=== PATIENT | male | born 1950 | race Caucasian/White ===

== ENCOUNTER → 2017-07-31 | Outpatient (CLI) | payer BC ==
--- NOTE | 2017-07-31 14:44 | US ---
HISTORY: Status post heart catheterization, pain and bruising in right groin, possible pseudoaneurys m Study: Duplex Doppler ultrasound of the right lower extremity Comparison: None Technique: Multiple grayscale and color flow images of the right lower extremity, with focus upon the right ingu inal region at femoral puncture site, were obtained. Findings: Imaging of the right inguinal region near the patient's right femoral artery puncture site demonstrat es normal Doppler flow within the right common femoral artery. Within the right inguinal region near the right common femoral artery, there is a 2.0 cm x 1.3 cm x 2.0 cm hypoechoic ovoid structure. This structure does not demonstrate color flow and is most consistent with a hematoma. No pseudoaneurysm is identified. IMPRESSION: 1. Right inguinal hematoma as described above. Reported By:
== END ==
LOC: RAD 13:03
PROVIDERS: ATTEND Internal Medicine Cardiovascular Disease
DX: I97.89 Other postprocedural complications and disorders of the circulatory system, not elsewhere classified (principal)
CPT/HCPCS: 76882

== ENCOUNTER 2017-08-05 08:58 | Emergency (ER) | payer BC ==
[2017-08-05 09:06] VITALS: BP 145/81; BMI 31.3
--- NOTE | 2017-08-05 09:43 | DR.GENAD ---
HPI - PCP Primary Care Physician: jorge - Complaint/Symptoms Chief Complaint:: pt had a heart cath done last week in [place], woke up this morning at 0430 and the site was bleeding a dressing was applied by family. Self Treatment fo Chief Complaint: In ER here 07/31 for same c/o, had US done which showed hematoma 2x1.3x2cm at cath site. Pt concerned that site again bled a little early this morning. - Nurses notes reviewed Nurses Notes Review: Yes - Source History Provided: Patient - Mode of Arrival Mode of Arrival: Ambulatory - Timing Onset of Chief Complaint: 08/05/17 Came on: [facility] - Duration Duration: Intermittent (stopped now, dsg applied by family) Duration: Minutes - Location Location: at cath site - Severity Severity: Mild PMH - PMH Past Medical History: Yes Past Medical History: Coronary Artery Disease, Hypertension, [place] Past Surgical History: Yes Surgical History: Angioplasty/Stents, Appendectomy Past Surgical History Comment: hernia. Recent cardiac cath via rt femoral artery - Family History History of Family Medical Conditions: Yes Family Medical History: Hypertension - Social History Does patient currently use any type of tobacco product: No Have you used tobacco products in the last 12 months: No Type of Tobacco Use: None Does any household member use tobacco: No Alcohol Use: None Do you use any recreational Drugs:: No Lives With: Family Lives Where: Home - infectious screening In the last 2 months have you had wt loss of >10#?: NO Have you had fever, night sweats or hemotysis?: No Have you traveled outside the country in the last 6 months?: No Isolation: Standard ROS - Review of Systems Constitutional: No Symptoms Reported, See HPI Eyes: No Symptoms Reported ENTM: No Symptoms Reported Respiratoy: No Symptoms Reported Cardiovascular: No Symptoms Reported Gastrointestinal/Abdominal: No Symptoms Reported Genitourinary: No Symptoms Reported Neurological: No Symptoms Reported Musculoskeletal: No Symptoms Reported, See HPI Integumentary: No Symptoms Reported, See HPI Hematologic/Lymphatic: See HPI All Other Systems: Reviewed and Negative PE - Vital Signs Vitals: Temperature 97.8 F Pulse Rate 71 Respiratory Rate 16 Blood Pressure 145/81 O2 Sat by Pulse Oximetry 99 - General Limitations: No Limitations General Appearance: Alert, In No Apparent Distress - Head Head Exam: Normal Inspection - Eyes Eye exam: Normal Appearance - ENT ENT Exam: Normal Exam - Neck Neck Exam: Normal Inspection, Full ROM, Trachea Midline - Chest Chest Inspection: Normal Inspection, Symmetric Chest Wall Rise - Respiratory Respiratory Exam: Normal Lung Sounds Bilat Respiratory Exam: Bilateral Clear to Auscultation - Cardiovascular Cardiovascular Exam: Regular Rate, Normal Rhythm - Abdominal Exam Abdominal Exam: Normal Inspection, Normal Bowel Sounds, Soft. negative: Tenderness, Guarding, Rebound, Rigidity - Extremities Extremities Exam: Normal Inspection (no active bleeding at cah site, no evidence of hematoma or swelling or cellulitis), Full ROM, Normal Capillary Refill. negative: Joint Swelling - Neurologic Neurological Exam: Alert, Oriented X3 - Psychiatric Psychiatric Exam: Normal Affect, Normal Mood - Skin Skin Exam: Warm, Dry - Other Exam Other Exam: cath site c/d/i ROR - XRAY XRAY Findings: US repeated, no evidence of pseudoaneurysm - Diagnosis Discharge Problem: Hematoma Narrative Support Text: pt reassured with normal US - Discharge Plan Disposition: 01 HOME, SELF-CARE Condition: Good - Follow ups/Referrals Follow ups/Referrals: [facility] [Primary Care Provider] - 3 days - Instructions Instructions: Hematoma
--- NOTE | 2017-08-05 10:24 | US ---
HISTORY: Bleeding, status post heart catheterization with clinical concern for pseudoaneurysm Study: Extremity ultrasound Comparison: 07/31/2017 Findings: Targeted scans were performed in the right groin. There is no evidence of pseudoaneurysm. There is a hypoechoic nonvascular collection suggestive of a hematoma measuring 1.1 x 1.9 x 1.8 cm. IMPRESSION: 1. Hematoma in the right groin measuring 1.1 x 1.9 x 1.8 cm. 2. No evidence of pseudoaneurysm. Reported By:
== END 2017-08-05 10:37 | disposition home or self-care (01) ==
LOC: ER 09:09
DX: S20.20XA Contusion of thorax, unspecified, initial encounter (principal); Y33.XXXA Other specified events, undetermined intent, initial encounter
CPT/HCPCS: 76882; 99282

== ENCOUNTER 2021-02-05 13:42 | Observation (INO) ==
[2021-02-05 13:59] VITALS: BMI 31.6
--- NOTE | 2021-02-05 14:39 | DR.GIBLEED ---
HPI Time Seen Time Seen by Provider: 02/05/21 14:23 Primary Care Physician Primary Care Physician: [facility] HPI Comment HPI Comment: PATIENT COMPLAINS OF LEFT LOWER ABDOMINAL PAIN CONSTANT SINCE LAST NIGHT, LOW GRADE FEVER, BLOODY STOOL THIS AM. DENIES NAUSEA EMESIS OR URINARY SYMPTOMS. TAKES BRILLANTA, HAS HAD CORONARY STENTS X 10. Complaints Chief Complaint Doctors Comments: LEFT LOWER ABDOMINAL PAIN, BLOOD IN STOOL Chief Complaint:: PT HAD SUDDEN ONSET OF LLQ PAIN DESCRIBED CONSTANT SORENESS THAT IS WORSENED WITH MOVENMENT THAT STARTED YESTERDAY. LAST NIGHT HE HAD TEMP 100. THIS MORNING HE NOTICED BRIGHT RED BLOOD IN STOOL. COVID-19 Coronavirus symptoms experienced: Fever Source History Provided: Patient Mode of Arrival Mode of Arrival: Ambulatory Timing Onset of Chief Complaint: 02/05/21 Duration Bleeding: Since Onset How lon Duration: Days Quality Stools: Bright Red Blood History Of: None Associated Signs and Symptoms Associated Signs and Symptoms: Abdominal Pain PMH PMH Past Medical History: Yes Past Medical History: Coronary Artery Disease, Dyslipidemia, Hypertension and [place] Past Surgical History: Yes Surgical History: Angioplasty/Stents and Appendectomy Past Surgical History Comment: CARDIAC STENT X 13, HERNIA REPAIR Family History History of Family Medical Conditions: Yes Family Medical History: Diabetes Mellitus, Cancer, [place], Coronary Artery Disease and Hypertension Social History Does patient currently use any type of tobacco product: No Have you used tobacco products in the last 12 months: No Type of Tobacco Use: None Does any household member use tobacco: No Alcohol Use: None Do you use any recreational Drugs:: No Lives With: Family Lives Where: Home Infectious screening In the last 2 months have you had wt loss of >10#?: NO Have you had fever, night sweats or hemotysis?: No Have you traveled outside the country in the last 6 months?: No Isolation: Standard ROS Review of Systems Constitutional: Fever Eyes: No Symptoms Reported ENTM: No Symptoms Reported Respiratoy: No Symptoms Reported Cardiovascular: No Symptoms Reported Gastrointestinal/Abdominal: See HPI, Abdominal Pain and Other (BRIGHT RED BLOOD IN STOOL) Genitourinary: No Symptoms Reported Neurological: No Symptoms Reported Musculoskeletal: No Symptoms Reported Integumentary: No Symptoms Reported Hematologic/Lymphatic: No Symptoms Reported Endocrine: No Symptoms Reported Psychiatric: No Symptoms Reported All Other Systems: Reviewed and Negative PE Vital Signs Vitals: Temperature 97.7 F Pulse Rate 68 Respiratory Rate 20 Blood Pressure 115/66 O2 Sat by Pulse Oximetry 98 General General Appearance: Alert and In No Apparent Distress Head Head Exam: Normal Inspection and Atraumatic Eyes Eye exam: Normal Appearance, PERRL and EOMI ENT ENT Exam: Normal Exam and Normal Oropharynx Neck Neck Exam: Normal Inspection and Full ROM Chest Chest Inspection: Normal Inspection and Symmetric Chest Wall Rise Respiratory Respiratory Exam: Normal Lung Sounds Bilat and Accessory Muscle Use Cardiovascular Cardiovascular Exam: Regular Rate and Normal Rhythm Abdominal Exam Abdominal Exam: Normal Inspection, Normal Bowel Sounds and Tenderness (MODERATE LEFT LOWER QUAD TENDERNESS) Abdominal Tenderness: LLQ Extremities Extremities Exam: Normal Inspection and Full ROM Back Back Exam: Normal Inspection and Full ROM Neurologic Neurological Exam: Alert, Oriented X3 and CN II-XII Intact Psychiatric Psychiatric Exam: Normal Affect, Normal Mood and Depressed Skin Skin Exam: Warm and Dry DIFFERENTIAL DIAGNOSIS Differential Diagnosis Differential Diagnosis: Diverticulosis and Inflammatory BD Differential Diagnosis Comment: ACUTE COLITIS COURSE Treatment Treatment: IV NORMAL SALINE 500ML/HR, AFTER 2 SETS OF BLOOD CULTURES, LEVAQUIN 750MG IVPB, REFUSED ANALGESICS.PATIENT HAD AN EPISODE OF NEAR SYNCOPE WHILE AMBULATION TO BATH ROOM Reevaluation 1st: Unchanged Consultation Call Returned: 16:30 Consultation Comments: DISCUSSED FINDINGS WITH DR PÉREZ FOR INPATIENT ADMISSION R[facility] Labs Reviewed Laboratory Results Reviewed?: Yes Result Diagrams: 02/05/21 15:15 02/05/21 15:15 Laboratory: 02/05/21 15:00 Stool - Final WBC 12.0 X10^3/uL (3.6-10.0) H 02/05/21 15:15 RBC 4.90 X10^6/uL (4.7-6.0) 02/05/21 15:15 Hgb 14.8 g/dL (13.5-18.0) 02/05/21 15:15 Hct 43.1 % (42.0-54.0) 02/05/21 15:15 MCV 88.1 fL (80.0-100.0) 02/05/21 15:15 MCH 30.2 pg (27.0-34.0) 02/05/21 15:15 MCHC 34.3 g/dL (33.0-35.0) 02/05/21 15:15 RDW 13.8 % (11.6-16.5) 02/05/21 15:15 Plt Count 192 X10^3/uL (150.0-450.0) 02/05/21 15:15 MPV 7.5 fL (7.4-11.0) 02/05/21 15:15 Neut % (Auto) 75.3 % (42.0-75.0) H 02/05/21 15:15 Lymph % (Auto) 13.7 % (21.0-51.0) L 02/05/21 15:15 [place] % (Auto) 9.4 % (0.0-13.0) 02/05/21 15:15 Eos % (Auto) 1.3 % (0.9-2.9) 02/05/21 15:15 Baso % (Auto) 0.3 % (0.2-1.0) 02/05/21 15:15 Neut # (Auto) 9.0 x10^3/uL (2.2-4.8) H 02/05/21 15:15 Lymph # (Auto) 1.6 X10^3/uL (1.3-2.9) 02/05/21 15:15 [place] # (Auto) 1.1 x10^3/uL (0.3-0.8) H 02/05/21 15:15 Eos # (Auto) 0.2 x10^3/uL (0.0-0.2) 02/05/21 15:15 Baso # (Auto) 0.0 X10^3/uL (0.0-0.1) 02/05/21 15:15 Absolute Nucleated RBC 0.0 /100WBC 02/05/21 15:15 PT 13.3 SECONDS (11.8-14.3) 02/05/21 15:15 INR Target Range - 02/05/21 15:15 INR 1.06 (0.8-1.3) 02/05/21 15:15 Sodium 138 mmol/L (136-145) 02/05/21 15:15 Corrected Sodium 139 mmol/L (136-145) 02/05/21 15:15 Potassium 4.2 mmol/L (3.5-5.1) 02/05/21 15:15 Chloride 103 mmol/L (98-107) 02/05/21 15:15 Carbon Dioxide 25.3 mmol/L (21-32) 02/05/21 15:15 BUN 18 mg/dL (7-18) 02/05/21 15:15 Creatinine 1.17 mg/dL (0.70-1.30) 02/05/21 15:15 Est GFR (MDRD) Af Amer > 60 (>60) 02/05/21 15:15 Est GFR (MDRD) Non-Af > 60 (>60) 02/05/21 15:15 Glucose 137 mg/dL (65-99) H 02/05/21 15:15 Calcium 8.7 mg/dL (8.5-10.1) 02/05/21 15:15 Troponin I 0.13 ng/mL (0-1.5) 02/05/21 15:15 Specimen Type Random urine 02/05/21 13:10 Urine Color Pale yellow (YELLOW) 02/05/21 13:10 Urine Appearance Clear (CLEAR) 02/05/21 13:10 Urine pH 6.5 (5.0 - 8.0) 02/05/21 13:10 Ur Specific [place] 1.015 (1.000-1.030) 02/05/21 13:10 Urine Protein 1+ (NEGATIVE) 02/05/21 13:10 Urine Glucose (UA) Negative (NEGATIVE) 02/05/21 13:10 Urine Ketones 2+ (NEGATIVE) 02/05/21 13:10 Urine Occult Blood Negative (NEGATIVE) 02/05/21 13:10 Urine Nitrite Negative (NEGATIVE) 02/05/21 13:10 Urine Bilirubin Negative (NEGATIVE) 02/05/21 13:10 Urine Urobilinogen Normal (NORMAL) 02/05/21 13:10 Ur Leukocyte Esterase Negative (NEGATIVE) 02/05/21 13:10 Urine RBC None seen /HPF (0-3) 02/05/21 13:10 Urine WBC None seen /HPF (0-5) 02/05/21 13:10 Ur Squamous Epith Cells Rare /HPF (NEGATIVE) 02/05/21 13:10 Urine Bacteria Negative /HPF (NEGATIVE) 02/05/21 13:10 Ur Culture Indicated? No/not indicated 02/05/21 13:10 Stool Description 75g red bloody clots 02/05/21 15:00 Stl Occult Blood (IFOB) Positive (NEGATIVE) A 02/05/21 15:00 Stool for White Cells Positive (NEGATIVE) A 02/05/21 15:00 Stool H. pylori Ag Negative (NEGATIVE) 02/05/21 15:00 SARS-CoV-2 (PCR) Negative (NEGATIVE) 02/05/21 13:10 Influenza Type A (PCR) Negative (NEGATIVE) 02/05/21 13:10 Influenza Type B (PCR) Negative (NEGATIVE) 02/05/21 13:10 RSV (PCR) Negative (NEGATIVE) 02/05/21 13:10 Blood Type O POSITIVE 02/05/21 15:15 Antibody Screen Negative 02/05/21 15:15 XRAY XRAY Interpreted by: Radiologist (ABDOMEN PELVIC CT C/W, CALCIFIED INTRALUMINAL GALLSTONE IN THE GALLBLADDER FUNDUS, 7.8CM LEFT LOWER POLE RENAL CYST, MARKED COLONIC THICKENING AND PERICOLONIC STEAKY INFLAMMATORY CHANGE DESCENDING COLON) EKG Rate: 68 [place]: Normal ST: Nonsp Opioid Opioid Risk Tool Total: 0 Total Score Risk Category: Low Risk Copyright: Geoff GENTILE predicting aberrant behaviors Diagnosis Discharge Problem: Acute diverticulitis
[2021-02-05] MEDS ORDERED: NS 1000 ML 1,000 ML IV STA (15:09)
[2021-02-05] MEDS ORDERED: NS 1000 ML 1,000 ML ONE ×2 (15:10→19:12)
[2021-02-05] MEDS ORDERED: ZOFRAN INJ 4 MG VIAL ONE (15:17)
[2021-02-05] MEDS ORDERED: ZOFRAN INJ 4 MG VIAL IVP ONE (15:24)
[2021-02-05 15:38] LABS: BASOPHILS % (AUTO) 0.3 % (0.2-1.0); EOSINOPHILS # (AUTO) 0.2 x10^3/uL (0.0-0.2); EOSINOPHILS % (AUTO) 1.3 % (0.9-2.9); HEMATOCRIT 43.1 % (42.0-54.0); HEMOGLOBIN 14.8 g/dL (13.5-18.0); LYMPHOCYTES # (AUTO) 1.6 X10^3/uL (1.3-2.9); LYMPHOCYTES % (AUTO) 13.7 % (21.0-51.0); MEAN CORPUSCULAR HEMOGLOBIN 30.2 pg (27.0-34.0); MEAN CORPUSCULAR HGB CONC 34.3 g/dL (33.0-35.0); MEAN CORPUSCULAR VOLUME 88.1 fL (80.0-100.0); MEAN PLATELET VOLUME 7.5 fL (7.4-11.0); MONOCYTES # (AUTO) 1.1 x10^3/uL (0.3-0.8); MONOCYTES % (AUTO) 9.4 % (0.0-13.0); NEUTROPHILS % (AUTO) 75.3 % (42.0-75.0); PLATELET COUNT 192 X10^3/uL (150.0-450.0); RED CELL DISTRIBUTION WIDTH 13.8 % (11.6-16.5)
[2021-02-05 16:01] LABS: TROPONIN I 0.13 ng/mL (0-1.5)
[2021-02-05 16:05] LABS: COR NA(FOR HYPERGLY) 139 mmol/L (136-145)
[2021-02-05 16:13] LABS: CALCIUM 8.7 mg/dL (8.5-10.1); CARBON DIOXIDE 25.3 mmol/L (21-32); CREATININE 1.17 mg/dL (0.70-1.30); eGFR NON BLACK RACES > 60 (>60)
[2021-02-05 16:14] LABS: CHLORIDE 103 mmol/L (98-107); SODIUM 138 mmol/L (136-145)
[2021-02-05 16:21] LABS: BLOOD UREA NITROGEN 18 mg/dL (7-18)
[2021-02-05] MEDS ORDERED: NS 100 ML IV 100 ML ONE (16:21)
--- NOTE | 2021-02-05 17:30 | CT ---
EXAM: CT ABDOMEN AND PELVIS WITH INTRAVENOUS CONTRASTHISTORY: Left lower quadrant abdominal pain.TECHNIQUE: Spiral axial CT images are obtained through the abdomen and pelvis without the administration of oral contrast and with the administration of intravenous contrast. Additional coronal and sagittal reformatted images are reconstructed.DOSIMETRY: Total DLP 920.5 mGycm; CTDI 49.6 mGyCOMPARISON: None available.FINDINGS:GASTROINTESTINAL TRACT: There is evidence for colonic diverticulosis, with acute descending colon diverticulitis, marked by colonic wall thickening and pericolonic streaky inflammatory change. No drainable fluid collection, free air, or abscess formation seen. No evidence for bowel herniation, bowel obstruction, or colitis. Small hiatal hernia with mild thickening of the visualized distal esophagus which may represent postinflammatory change or reflux esophagitis in the appropriate clinical setting.GENITOURINARY SYSTEM: There is a large, approximately 7.8 cm, left lower pole renal cyst. The kidneys are otherwise unremarkable. There is no ureteral calculus or stigmata of obstructive uropathy. The urinary bladder, seminal vesicles, prostate gland appear grossly unremarkable for a non-dedicated exam.CT ABDOMEN: There is suggestion of a phrygian cap with a calcified intraluminal gallstone in the gallbladder fundus. Severe aortoiliac atherosclerotic disease, without aneurysm formation or dissection. The liver, spleen, pancreas, adrenal glands, and inferior vena cava are within normal limits for a CT scan. There is no intra-abdominal or retroperitoneal lymphadenopathy, free fluid, or free air seen. No abdominal herniation is noted.CT PELVIS: The visualized bony structures are within normal limits. No pelvic sidewall or inguinal lymphadenopathy is seen. No inguinal herniation is noted. No free fluid or free air is seen.LUNG BASES: There is an approximately 6.9 mm subpleural nodule in the peripheral left lung base. For low risk patient, recommend follow-up CT in 12 months, and if stable no further follow-up. For high-risk patient, recommend follow-up CT in no more than 6-12 months, and if stable, consider follow-up at 18-24 months. The lung bases are otherwise clear. There is severe coronary atherosclerosis.IMPRESSION:1. Acute descending colon diverticulitis.2. No free air, free fluid, or abscess formation seen.3. Small hiatal hernia with mild thickening of the visualized distal esophagus which may represent postinflammatory change or reflux esophagitis in the appropriate clinical setting.4. No evidence for pyelonephritis, renal stone disease or obstructive uropathy.5. No free fluid, free air, mass lesions, or lymphadenopathy seen.6. Suggestion of a phrygian cap with a calcified intraluminal gallstone in the gallbladder fundus. Consider follow-up evaluation with ultrasound as clinically warranted.7. Approximately 6.9 mm subpleural nodule in the peripheral left lung base. For low risk patient, recommend follow-up CT in 12 months, and if stable no further follow-up. For high-risk patient, recommend follow-up CT in no more than 6-12 months, and if stable, consider follow-up at 18-24 months.Electronically signed by: David Torre (Feb 05, 2021 17:28:41)
[2021-02-05 18:25] LABS: PH,URINE 6.5 (5.0 - 8.0); PROTEIN,URINE 1+ (NEGATIVE)
[2021-02-05 18:26] LABS: BILIRUBIN,URINE NEGATIVE (NEGATIVE); BLOOD/HEMOGLOBIN,URINE NEGATIVE (NEGATIVE); GLUCOSE, URINE NEGATIVE (NEGATIVE); KETONES,URINE 2+ (NEGATIVE); LEUKOCYTE ESTERASE ,URINE NEGATIVE (NEGATIVE); NITRITES,URINE NEGATIVE (NEGATIVE); UROBILINOGEN,URINE NORMAL (NORMAL)
[2021-02-05 18:34] LABS: APPEARANCE,URINE CLEAR (CLEAR); COLOR,URINE PALE YELLOW (YELLOW)
[2021-02-05 18:35] LABS: BACTERIA,URINE NEGATIVE /HPF (NEGATIVE); RBC,URINE NONE SEEN /HPF (0-3); SQUAMOUS EPITHELIAL CELL,UR RARE /HPF (NEGATIVE)
[2021-02-05] MEDS ORDERED: ZOFRAN INJ 4 MG VIAL IVP PRN (19:04)
[2021-02-05] MEDS: NS 1000 ML 1,000 ML IV SCH (19:16)
[2021-02-05 20:54] LABS: BASOPHILS % (AUTO) 0.4 % (0.2-1.0); EOSINOPHILS # (AUTO) 0.1 x10^3/uL (0.0-0.2); EOSINOPHILS % (AUTO) 0.8 % (0.9-2.9); HEMOGLOBIN 13.5 g/dL (13.5-18.0); LYMPHOCYTES # (AUTO) 1.8 X10^3/uL (1.3-2.9); LYMPHOCYTES % (AUTO) 17.4 % (21.0-51.0); MEAN CORPUSCULAR HEMOGLOBIN 30.5 pg (27.0-34.0); MEAN CORPUSCULAR HGB CONC 34.6 g/dL (33.0-35.0); MEAN PLATELET VOLUME 7.2 fL (7.4-11.0); MONOCYTES # (AUTO) 0.8 x10^3/uL (0.3-0.8); NEUTROPHILS # (AUTO) 7.8 x10^3/uL (2.2-4.8); NEUTROPHILS % (AUTO) 73.4 % (42.0-75.0); PLATELET COUNT 152 X10^3/uL (150.0-450.0); RED BLOOD COUNT 4.43 X10^6/uL (4.7-6.0); RED CELL DISTRIBUTION WIDTH 13.6 % (11.6-16.5); WHITE BLOOD COUNT 10.6 X10^3/uL (3.6-10.0)
[2021-02-05] MEDS ORDERED: FLAGYL IV PREMIX 500 MG BAG 500 MG/100 ML BAG IV ONE (21:09)
[2021-02-05] MEDS: FLAGYL IV PREMIX 500 MG BAG 500 MG/100 ML BAG IV SCH (21:10)
[2021-02-05] MEDS ORDERED: TYLENOL 325 MG TAB PO PRN (23:59)
[2021-02-06] MEDS: FLAGYL IV PREMIX 500 MG BAG 500 MG/100 ML BAG IV SCH (04:10)
[2021-02-06] MEDS: NS 1000 ML 1,000 ML IV SCH (06:20)
[2021-02-06 06:29] LABS: BASOPHILS % (AUTO) 0.4 % (0.2-1.0); EOSINOPHILS # (AUTO) 0.3 x10^3/uL (0.0-0.2); HEMATOCRIT 36.4 % (42.0-54.0); HEMOGLOBIN 12.6 g/dL (13.5-18.0); LYMPHOCYTES # (AUTO) 2.4 X10^3/uL (1.3-2.9); LYMPHOCYTES % (AUTO) 27.6 % (21.0-51.0); MEAN CORPUSCULAR HEMOGLOBIN 30.8 pg (27.0-34.0); MEAN CORPUSCULAR HGB CONC 34.8 g/dL (33.0-35.0); MEAN CORPUSCULAR VOLUME 88.6 fL (80.0-100.0); MEAN PLATELET VOLUME 7.8 fL (7.4-11.0); MONOCYTES # (AUTO) 0.8 x10^3/uL (0.3-0.8); MONOCYTES % (AUTO) 9.5 % (0.0-13.0); NEUTROPHILS # (AUTO) 5.2 x10^3/uL (2.2-4.8); NEUTROPHILS % (AUTO) 59.5 % (42.0-75.0); PLATELET COUNT 143 X10^3/uL (150.0-450.0); RED CELL DISTRIBUTION WIDTH 13.8 % (11.6-16.5); WHITE BLOOD COUNT 8.7 X10^3/uL (3.6-10.0)
[2021-02-06 07:43] VITALS: BP 109/61
[2021-02-06] MEDS ORDERED: LEVAQUIN PREMIX IV 750 MG 750 MG/150 ML BAG IV SCH ×2 (09:00)
[2021-02-06] MEDS ORDERED: CIPRO TAB 500 MG PO SCH (09:00)
[2021-02-06] MEDS ORDERED: FLAGYL TAB 500 MG PO SCH (14:00)
[2021-02-07 23:22] LABS: ALANINE AMINOTRANSFERASE 37 Units/L (12-78); ALKALINE PHOSPHATASE 68 Units/L (46-116); ASPARTATE AMINO TRANSFERASE 24 Units/L (15-37); TOTAL PROTEIN 7.3 g/dL (6.4-8.2)
== END 2021-02-06 09:20 | disposition home or self-care (01) ==
LOC: ER 13:49 → INTOOBSV 19:52 → MED/SURG 19:52
PROVIDERS: ADMIT Obstetrics & Gynecology Obstetrics; ATTEND Obstetrics & Gynecology Obstetrics
DX: I25.10 Atherosclerotic heart disease of native coronary artery without angina pectoris; E78.2 Mixed hyperlipidemia; Z20.822 Contact with and (suspected) exposure to COVID-19; I10 Essential (primary) hypertension; K57.32 Diverticulitis of large intestine without perforation or abscess without bleeding; R55 Syncope and collapse